=== PATIENT | female | born 1940 | race Two or more races ===

== ENCOUNTER 2017-07-16 10:57 | Emergency (ER) | payer MEDICARE, MEDICAID ==
--- NOTE | 2017-07-16 12:06 | ER Document Report ---
ED Medical Screen (RME) - General Chief Complaint: Shortness Of Breath Stated Complaint: BREATHING ISSUES Time Seen by Provider: 07/16/17 12:04 Notes: Patient states she is visiting here from [place]. She states she has a history of asthma. She states she has been short of breath and having a productive cough over the last several days. She has been using her nebulizer without significant relief. She has not been using her inhaler. She denies any pain. No fevers. TRAVEL OUTSIDE OF THE [place] IN LAST 30 DAYS: No - Related Data Allergies/Adverse Reactions: No Known Allergies Allergy (Verified 07/16/17 11:00) Past Medical History - Social History Chew tobacco use (# tins/day): No Frequency of alcohol use: Occasional Drug Abuse: None - Past Medical History Cardiac Medical History: Reports: Hx Hypercholesterolemia, Hx Hypertension Pulmonary Medical History: Reports: Hx Asthma, Hx COPD Endocrine Medical History: Reports: Hx Diabetes Mellitus Type 2 Renal/ Medical History: Denies: Hx Peritoneal Dialysis Malignancy Medical History: Reports: Hx Breast Cancer Musculoskeltal Medical History: Reports Hx Arthritis Past Surgical History: Reports: Hx Cardiac Catheterization, Hx Mastectomy - Immunizations Hx Diphtheria, Pertussis, Tetanus Vaccination: Yes Physical Exam - Vital signs Vitals: Temp Pulse Resp BP Pulse Ox 98 F 85 20 134/106 H 97 07/16/17 11:00 07/16/17 11:07/16/17 11:00 07/16/17 11:00 07/16/17 11:00 Course - Vital Signs Vital signs: Temp Pulse Resp BP Pulse Ox 98 F 85 20 134/106 H 97 07/16/17 11:07/16/17 11:00 07/16/17 11:00 07/16/17 11:00 07/16/17 11:00
[2017-07-16 12:29] LABS: ABSOLUTE BASOPHILS # (AUTO) 0.1 10^3/uL (0.0-0.2); ABSOLUTE EOSINOPHILS # (AUTO) 0.4 10^3/uL (0.0-0.6); ABSOLUTE LYMPHOCYTES (AUTO) 1.9 10^3/uL (0.5-4.7); ABSOLUTE MONOCYTES (AUTO) 0.7 10^3/uL (0.1-1.4); ABSOLUTE NEUT (AUTO) 4.3 10^3/uL (1.7-8.2); BASOPHILS % (AUTO) 0.9 % (0-2); EOSINOPHILS % (AUTO) 5.4 % (0-6); HEMATOCRIT 38.6 % (36.0-47.0); HEMOGLOBIN 12.9 g/dL (12.0-15.5); HGB HCT DIFFERENCE 0.1; LYMPHOCYTES % (AUTO) 25.6 % (13-45); MEAN CORPUSCULAR HEMOGLOBIN 28.2 pg (27.0-33.4); MEAN CORPUSCULAR HGB CONC 33.3 g/dL (32.0-36.0); MEAN CORPUSCULAR VOLUME 85 fl (80-97); MONOCYTES % (AUTO) 9.3 % (3-13); RED BLOOD COUNT 4.56 10^6/uL (3.72-5.28); RED CELL DISTRIBUTION WIDTH 15.6 % (11.5-14.0); SEGMENTED NEUTROPHILS % (AUTO) 58.8 % (42-78); WHITE BLOOD COUNT 7.4 10^3/uL (4.0-10.5)
--- NOTE | 2017-07-16 12:35 | RADIOLOGY REPORT (SQ) ---
EXAM DESCRIPTION: CHEST PA/LAT COMPLETED DATE/TIME: 07/16/2017 12:27 pm REASON FOR STUDY: sob/cough COMPARISON: 04/27/2015. NUMBER OF VIEWS: Two view. TECHNIQUE: Frontal and lateral radiographic views of the chest acquired. LIMITATIONS: None. FINDINGS: LUNGS AND PLEURA: Chronic interstitial scarring. No opacities, masses or pneumothorax. No pleural effusion. Attenuated blood vessels and flattened juanita-diaphragms. MEDIASTINUM AND HILAR STRUCTURES: No masses. No contour abnormalities. HEART AND VASCULAR STRUCTURES: Heart normal in size and contour. No evidence for failure. BONES: No acute findings. HARDWARE: None in the chest. OTHER: No other significant finding. IMPRESSION: COPD. NO ACUTE RADIOGRAPHIC FINDING IN THE CHEST. TECHNICAL DOCUMENTATION: JOB ID: [id number] [employer]- All Rights Reserved
[2017-07-16 12:44] LABS: ALANINE AMINOTRANSFERASE 41 U/L (9-52); ALBUMIN 4.3 g/dL (3.5-5.0); ALKALINE PHOSPHATASE 71 U/L (38-126); ANION GAP 11 (5-19); ASPARTATE AMINO TRANSFERASE 23 U/L (14-36); BILIRUBIN,DIRECT 0.3 mg/dL (0.0-0.4); BILIRUBIN,TOTAL 0.5 mg/dL (0.2-1.3); BLOOD UREA NITROGEN 19 mg/dL (7-20); CALCIUM 9.8 mg/dL (8.4-10.2); CARBON DIOXIDE 29 mmol/L (22-30); CHLORIDE 100 mmol/L (98-107); CREATININE RESULT 0.58 mg/dL (0.52-1.25); GLUCOSE 300 mg/dL (75-110); POTASSIUM 4.8 mmol/L (3.6-5.0); SODIUM 139.7 mmol/L (137-145); TOTAL PROTEIN 7.1 g/dL (6.3-8.2)
[2017-07-16] MEDS ORDERED: IPRATROPIUM/ALBUTEROL 0.5-2.5 MG/3 ML AMPUL NEB ONE (13:02)
[2017-07-16] MEDS ORDERED: GUAIFENESIN SYRP 200 MG/10 ML UDC PO ONE (13:03)
[2017-07-16] MEDS ORDERED: INSULIN REG, HUMAN 100 UNIT/ML 3 ML VIAL (PYX) SUBCUT ONE (14:10)
[2017-07-16] MEDS ORDERED: METHYLPREDNISOLONE INJ 125 MG/2 ML SDV IV ONE (14:10)
--- NOTE | 2017-07-16 14:17 | ER Document Report ---
ED Respiratory Problem - General Chief Complaint: Shortness Of Breath Stated Complaint: BREATHING ISSUES Time Seen by Provider: 07/16/17 12:04 Mode of Arrival: Ambulatory Information source: Patient Notes: Patient is a 76-year-old female who presents to the ER today for cough, shortness of breath, wheezing 1 week. Patient has COPD and has been using her albuterol inhaler but states that she is out of that as well as her albuterol for her nebulizer. She admits to productive cough, sweating and chills but does not know if she has had a fever or not. She denies any nausea or vomiting. She denies chest pain. TRAVEL OUTSIDE OF THE [place] IN LAST 30 DAYS: No - Related Data Allergies/Adverse Reactions: No Known Allergies Allergy (Verified 07/16/17 11:00) Past Medical History - General Information source: Patient - Social History Smoking Status: Former Smoker Chew tobacco use (# tins/day): No Frequency of alcohol use: Occasional Drug Abuse: None Family History: Reviewed & Not Pertinent Patient has suicidal ideation: No Patient has homicidal ideation: No - Past Medical History Cardiac Medical History: Reports: Hx Hypercholesterolemia, Hx Hypertension Pulmonary Medical History: Reports: Hx Asthma, Hx COPD Endocrine Medical History: Reports: Hx Diabetes Mellitus Type 2 Renal/ Medical History: Denies: Hx Peritoneal Dialysis Malignancy Medical History: Reports: Hx Breast Cancer Musculoskeltal Medical History: Reports Hx Arthritis Past Surgical History: Reports: Hx Cardiac Catheterization, Hx Mastectomy - Immunizations Hx Diphtheria, Pertussis, Tetanus Vaccination: Yes Hx Pneumococcal Vaccination: 01/15/13 Review of Systems - Review of Systems Constitutional: No symptoms reported EENT: No symptoms reported Cardiovascular: No symptoms reported Respiratory: See HPI Gastrointestinal: No symptoms reported Genitourinary: No symptoms reported Female Genitourinary: No symptoms reported Musculoskeletal: No symptoms reported Skin: No symptoms reported Hematologic/Lymphatic: No symptoms reported Neurological/Psychological: No symptoms reported Physical Exam - Vital signs Vitals: Temp Pulse Resp BP Pulse Ox 98 F 85 20 134/106 H 97 07/16/17 11:00 07/16/17 11:00 07/16/17 11:00 07/16/17 11:00 07/16/17 11:00 - Notes Notes: PHYSICAL EXAMINATION: GENERAL: Mildly ill-appearing, but in no acute distress. HEAD: Atraumatic, normocephalic. EYES: Pupils equal round and reactive to light, extraocular movements intact, sclera anicteric, conjunctiva are normal. ENT: ear canals without erythema or foreign body, TMs pearly lee with good bony landmarks, nares patent, oropharynx clear without exudates. Moist mucous membranes. Airway patent NECK: Normal range of motion, supple without lymphadenopathy LUNGS: Cough, rhonchi in bilateral lower lung pitt, no wheezes or rales HEART: Regular rate and rhythm without murmurs ABDOMEN: Soft, no tenderness. No guarding, no rebound EXTREMITIES: Normal range of motion, no pitting edema. No cyanosis. NEUROLOGICAL: Cranial nerves grossly intact. Normal sensory/motor exams. PSYCH: Normal mood, normal affect. SKIN: Warm, Dry, normal turgor, no rashes or lesions noted Course - Re-evaluation Re-evalutation: 07/16/17 14:17 Patient feels better after breathing treatment. Patient's glucose here was 300 , she was given insulin. I gave her a steroid shot here instead of sending her home on prednisone due to her diabetes. I will provide her an antibiotic, treating for bronchitis and COPD patient with more than 1 week of symptoms and productive cough, rhonchi on exam. - Vital Signs Vital signs: Temp Pulse Resp BP Pulse Ox 98 F 85 20 134/106 H 97 07/16/17 11:00 07/16/17 11:00 07/16/17 11:00 07/16/17 11:00 07/16/17 11:00 - Laboratory Result Diagrams: 07/16/17 12:10 07/16/17 12:10 Laboratory results interpreted by me: 07/16/17 07/16/17 12:10 12:10 RDW 15.6 H Glucose 300 H Discharge - Discharge Clinical Impression: COPD exacerbation Additional Instructions: Return immediately for any new or worsening symptoms. Follow up with primary care provider, call tomorrow to make followup appointment. Prescriptions: Albuterol Sulfate [Albuterol Sulfate 2.5mg/3 mL] 1 vial IH Q4 PRN #25 vial PRN Reason: Azithromycin [Zithromax 250 mg Tablet] 250 mg PO ASDIR PRN #6 tablet PRN Reason:
[2017-07-16] MEDS ORDERED: ALBUTEROL SULFATE HFA (90 MCG/PUFF) 8 GM MDI (1 MDI/ER DISP) IH PRN (14:19)
[2017-07-16 14:32] VITALS: BP 145/69
[2017-07-16] MEDS ORDERED: METHYLPREDNISOLONE INJ 125 MG/2 ML SDV IM ONE (14:59)
== END 2017-07-16 15:00 | disposition home or self-care (01) ==
LOC: ER 10:57
DX: J44.1 Chronic obstructive pulmonary disease with (acute) exacerbation (principal); R05 Cough; R06.02 Shortness of breath; R61 Generalized hyperhidrosis; R68.83 Chills (without fever); E11.9 Type 2 diabetes mellitus without complications; I10 Essential (primary) hypertension; Z87.891 Personal history of nicotine dependence; Z85.3 Personal history of malignant neoplasm of breast
CPT/HCPCS: 94640; 99285; 96374; 36415; 85025; 80053; 71020; A9270 ×2; J2930; J3490; J1815; J7620

== ENCOUNTER 2017-09-20 09:05 | Emergency (ER) | payer MEDICARE, MEDICAID ==
--- NOTE | 2017-09-20 09:36 | ER Document Report ---
ED Medical Screen (RME) - General Chief Complaint: Cough Stated Complaint: COUGH Mode of Arrival: Ambulatory Information source: Patient Notes: 76-year-old female with history of NV, asthma, COPD, and diabetes mellitus type II presents to the ED complaining of a severe productive cough with yellow sputum that started 2 weeks ago. Patient additionally complains of chills, malaise, mild chest discomfort which is exacerbated with deep breathing, and posttussive emesis. Patient explains that she was seen here last month (2016) with similar complaints. Patient was feeling better until 2 weeks ago when she developed the cough again. Patient has taken Mucinex and cough drops, with minimal relief. Patient is visiting from [place] and is not able to see her primary care physician. Patient has not taken her metformin for the past 3 days and is requesting a refill. TRAVEL OUTSIDE OF THE [place] IN LAST 30 DAYS: No - HPI Patient complains to provider of: cough Onset: Other - 2 weeks ago Associated Symptoms: Other - see notes above - Related Data Smoking: Quit greater than 1 year Allergies/Adverse Reactions: No Known Allergies Allergy (Verified 09/20/17 09:08) Home Medications: Current Home Medications Anastrozole [Arimidex 1 mg Tablet] 1 mg PO DAILY 09/20/17 [History] Esomeprazole Mag Trihydrate [Nexium] 40 mg PO DAILY 09/20/17 [History] Latanoprost [Xalatan 0.005% Oph Soln 2.5 ml] 1 drop OP QHS 09/20/17 [History] Loratadine [Claritin] 10 mg PO DAILY 09/20/17 [History] Nifedipine [Nifedipine ER] 120 mg PO DAILY 09/20/17 [History] Sitagliptin Phosphate [Januvia] 100 mg PO DAILY 09/20/17 [History] Valsartan 80 mg PO DAILY 09/20/17 [History] Past Medical History - General Information source: Patient - Social History Chew tobacco use (# tins/day): No Frequency of alcohol use: Occasional Drug Abuse: None - Past Medical History Cardiac Medical History: Reports: Hx Hypercholesterolemia, Hx Hypertension Pulmonary Medical History: Reports: Hx Asthma, Hx COPD Endocrine Medical History: Reports: Hx Diabetes Mellitus Type 2 Renal/ Medical History: Denies: Hx Peritoneal Dialysis Malignancy Medical History: Reports: Hx Breast Cancer Musculoskeltal Medical History: Reports Hx Arthritis Past Surgical History: Reports: Hx Cardiac Catheterization, Hx Mastectomy - Immunizations Hx Diphtheria, Pertussis, Tetanus Vaccination: Yes Review of Systems - Review of Systems Constitutional: See HPI, Chills, Malaise EENT: No symptoms reported Cardiovascular: See HPI, Chest pain Respiratory: See HPI, Cough, Hurts to breathe, Sputum - yellow Gastrointestinal: See HPI, Vomiting Genitourinary: No symptoms reported Female Genitourinary: No symptoms reported Musculoskeletal: No symptoms reported Skin: No symptoms reported Hematologic/Lymphatic: No symptoms reported Neurological/Psychological: No symptoms reported -: Yes All other systems reviewed and negative Physical Exam - Vital signs Vitals: Temp Pulse Resp BP Pulse Ox 98.1 F 80 20 137/50 H 97 09/20/17 09:12 09/20/17 09:12 09/20/17 09:12 09/20/17 09:12 09/20/17 09:12 - General General appearance: Alert In distress: None - Respiratory Respiratory status: No respiratory distress Breath sounds: Wheezing - bibasilar wheezing. No: Normal - Cardiovascular Rhythm: Regular Heart sounds: Normal auscultation - Psychological Associated symptoms: Normal affect, Normal mood Course - Vital Signs Vital signs: Temp Pulse Resp BP Pulse Ox 98.1 F 80 20 137/50 H 97 09/20/17 09:12 09/20/17 09:12 09/20/17 09:12 09/20/17 09:12 09/20/17 09:12 Scribe Documentation - Scribe Written by Scribe:: Katlyn Freitas, 09/20/2017 0958 acting as scribe for :: Alec
[2017-09-20 10:09] LABS: ABSOLUTE BASOPHILS # (AUTO) 0.1 10^3/uL (0.0-0.2); ABSOLUTE EOSINOPHILS # (AUTO) 0.4 10^3/uL (0.0-0.6); ABSOLUTE LYMPHOCYTES (AUTO) 1.9 10^3/uL (0.5-4.7); ABSOLUTE NEUT (AUTO) 7.8 10^3/uL (1.7-8.2); BASOPHILS % (AUTO) 0.6 % (0-2); EOSINOPHILS % (AUTO) 3.8 % (0-6); LYMPHOCYTES % (AUTO) 16.7 % (13-45); MEAN CORPUSCULAR HEMOGLOBIN 27.9 pg (27.0-33.4); MEAN CORPUSCULAR HGB CONC 33.4 g/dL (32.0-36.0); MEAN CORPUSCULAR VOLUME 84 fl (80-97); MONOCYTES % (AUTO) 9.2 % (3-13); RED BLOOD COUNT 4.31 10^6/uL (3.72-5.28); RED CELL DISTRIBUTION WIDTH 14.6 % (11.5-14.0); SEGMENTED NEUTROPHILS % (AUTO) 69.7 % (42-78); WHITE BLOOD COUNT 11.2 10^3/uL (4.0-10.5)
--- NOTE | 2017-09-20 10:14 | RADIOLOGY REPORT (SQ) ---
EXAM DESCRIPTION: CHEST PA/LAT COMPLETED DATE/TIME: 09/20/2017 10:03 am REASON FOR STUDY: Cough and congestion COMPARISON: 07/16/2017. NUMBER OF VIEWS: Two view. TECHNIQUE: Frontal and lateral radiographic views of the chest acquired. LIMITATIONS: None. FINDINGS: LUNGS AND PLEURA: Hyperinflation. Infiltrate in the superior segment left lower lobe. Ri ght lung clear. No pleural effusion. MEDIASTINUM AND HILAR STRUCTURES: No masses. No contour abnormalities. HEART AND VASCULAR STRUCTURES: Heart normal in size and contour. No evidence for failure. BONES: No acute findings. HARDWARE: None in the chest. OTHER: No other significant finding. IMPRESSION: COPD. LEFT LUNG INFILTRATE CONSISTENT WITH PNEUMONIA. TECHNICAL DOCUMENTATION: JOB ID: [id number] [employer]- All Rights Reserved
[2017-09-20 10:30] LABS: ALANINE AMINOTRANSFERASE 45 U/L (9-52); ALBUMIN 4.1 g/dL (3.5-5.0); ALKALINE PHOSPHATASE 82 U/L (38-126); ANION GAP 12 (5-19); ASPARTATE AMINO TRANSFERASE 21 U/L (14-36); BILIRUBIN,DIRECT 0.4 mg/dL (0.0-0.4); BILIRUBIN,TOTAL 0.5 mg/dL (0.2-1.3); BLOOD UREA NITROGEN 16 mg/dL (7-20); CALCIUM 9.3 mg/dL (8.4-10.2); CARBON DIOXIDE 28 mmol/L (22-30); CHLORIDE 100 mmol/L (98-107); GLUCOSE 319 mg/dL (75-110); POTASSIUM 4.7 mmol/L (3.6-5.0); SODIUM 140.4 mmol/L (137-145); TOTAL PROTEIN 6.9 g/dL (6.3-8.2)
[2017-09-20] MEDS ORDERED: CEFTRIAXONE 1 GM/D5W RTU 1 GM/50 ML RTUPB IV ONE (12:02)
[2017-09-20] MEDS ORDERED: CEFTRIAXONE INJ 500 MG VIAL IM ONE (12:29)
[2017-09-20] MEDS ORDERED: DEXAMETHASONE SOD PHOS INJ 10 MG/1 ML VIAL IM ONE (12:31)
[2017-09-20] MEDS ORDERED: IPRATROPIUM/ALBUTEROL 0.5-2.5 MG/3 ML AMPUL NEB ONE (12:31)
--- NOTE | 2017-09-20 13:14 | EKG REPORT ---
SEVERITY:- NORMAL ECG - SINUS RHYTHM : Confirmed by: Nick Chavez MD 20-Sep-2017 13:13:31
--- NOTE | 2017-09-20 14:10 | ER Document Report ---
ED General - General Chief Complaint: Cough Stated Complaint: COUGH Time Seen by Provider: 09/20/17 09:28 Mode of Arrival: Ambulatory Information source: Patient Notes: Patient is a 76-year-old female comes emergency room complaining of a two-week onset of cough. Patient is living here with her daughter from [place] for the past 2 months. Patient states she was seen here a few months back for the same kind of complaint and she got better. She comes back today with complaint of cough with a light green productive sputum. She denies having any fever although she has been chilled. She also informed me that she is an oral dependent diabetic and she has been out of her metformin now for the past month and a half. She states she has not been checking her sugars because she is out of her test strips. She has had some congestion runny nose she has been using her inhalers at home as well as her nebulizer machine with some effect. She states spelled that her cough is getting worse and she is not feeling well. TRAVEL OUTSIDE OF THE [place] IN LAST 30 DAYS: No - HPI Patient complains to provider of: Cough/congestion Onset: Other - Two-week onset worse past 2 days Onset/Duration: Gradual Quality of pain: Achy Severity: Moderate Pain Level: 2 Associated symptoms: Chills, Productive cough, Nausea, Rhinnorhea, Sinus pain/ drainage Exacerbated by: Walking, Coughing, Deep breathing Relieved by: Denies Similar symptoms previously: Yes Recently seen / treated by doctor: No - Related Data Allergies/Adverse Reactions: No Known Allergies Allergy (Verified 09/20/17 09:08) Home Medications: Current Home Medications Anastrozole [Arimidex 1 mg Tablet] 1 mg PO DAILY 09/20/17 [History] Esomeprazole Mag Trihydrate [Nexium] 40 mg PO DAILY 09/20/17 [History] Latanoprost [Xalatan 0.005% Oph Soln 2.5 ml] 1 drop OP QHS 09/20/17 [History] Loratadine [Claritin] 10 mg PO DAILY 09/20/17 [History] Nifedipine [Nifedipine ER] 120 mg PO DAILY 09/20/17 [History] Sitagliptin Phosphate [Januvia] 100 mg PO DAILY 09/20/17 [History] Valsartan 80 mg PO DAILY 09/20/17 [History] Past Medical History - General Information source: Patient - Social History Smoking Status: Unknown if Ever Smoked Chew tobacco use (# tins/day): No Frequency of alcohol use: Occasional Drug Abuse: None Family History: Reviewed & Not Pertinent Patient has suicidal ideation: No Patient has homicidal ideation: No - Past Medical History Cardiac Medical History: Reports: Hx Hypercholesterolemia, Hx Hypertension Pulmonary Medical History: Reports: Hx Asthma, Hx COPD Endocrine Medical History: Reports: Hx Diabetes Mellitus Type 2 Renal/ Medical History: Denies: Hx Peritoneal Dialysis Malignancy Medical History: Reports: Hx Breast Cancer Musculoskeltal Medical History: Reports Hx Arthritis Past Surgical History: Reports: Hx Cardiac Catheterization, Hx Mastectomy - Immunizations Hx Diphtheria, Pertussis, Tetanus Vaccination: Yes Hx Pneumococcal Vaccination: 01/15/13 Review of Systems - Review of Systems Constitutional: Chills, Fever, Weakness EENT: Nose congestion Cardiovascular: No symptoms reported Respiratory: Cough, Sputum, Wheezing Gastrointestinal: No symptoms reported Genitourinary: No symptoms reported Female Genitourinary: No symptoms reported Musculoskeletal: No symptoms reported Skin: No symptoms reported Hematologic/Lymphatic: No symptoms reported Neurological/Psychological: No symptoms reported -: Yes All other systems reviewed and negative Physical Exam - Vital signs Vitals: Temp Pulse Resp BP Pulse Ox 98.1 F 80 20 137/50 H 97 09/20/17 09:12 09/20/17 09:12 09/20/17 09:12 09/20/17 09:12 09/20/17 09:12 Interpretation: Normal - Notes Notes: As stated patient is a 76-year-old female who is here because she has a cough that developed over the past 2 weeks. It is productive of slightly yellow. Patient does not look very ill. She is communicative smiling and occasionally coughs. Patient is afebrile and denies really major shortness of breath. - HEENT Head: Normocephalic, Atraumatic Eyes: Normal Tympanic membrane: Bulging Nasal: Other - Bilateral nasal congestion Mucous membranes: Moist Pharynx: Other - Examination had an upper airway showed nasal mucosa to be mildly erythematous and edematous with some mild thin yellowish rhinorrhea noted. Bilateral nasal congestion is also noted. Bilateral frontal sinus tenderness to percussion. Bilateral maxillary is unclear. Examination of the ear show bilateral TMs to be bulging with no fluid levels noted. External canals are's has cerumen but TMs are visualized landmarks are normal. Examination of posterior pharynx shows drainage in the back with yellowish tint to it. Rest of the oropharynx shows moderate erythema with no exudates. Uvula is midline no exudate but erythematous and airway is patent. Neck: Normal - Respiratory Respiratory status: No respiratory distress Chest status: Nontender Breath sounds: Decreased air movement, Wheezing, Other - Auscultation patient's lung pitt show she has bilateral breath sounds breath sounds are moderately decreased throughout with an end expiratory wheeze on the left side with possible upper airway rhonchi noted on exhalation. Chest palpation: Normal - Cardiovascular Rhythm: Regular Heart sounds: Normal auscultation Murmur: No - Extremities General upper extremity: Normal inspection General lower extremity: Normal inspection Shoulder: Normal - Neurological Neuro grossly intact: Yes Cognition: Normal Orientation: AAOx4, Disoriented to events Kaushik Coma Scale Eye Opening: Spontaneous Kaushik Coma Scale Verbal: Oriented [place] Coma Scale Motor: Obeys Commands [place] Coma Scale Total: 15 Speech: Normal Course - Vital Signs Vital signs: Temp Pulse Resp BP Pulse Ox 98.1 F 80 20 137/50 H 97 09/20/17 09:12 09/20/17 09:12 09/20/17 09:12 09/20/17 09:12 09/20/17 09:12 - Laboratory Result Diagrams: 09/20/17 09:50 09/20/17 09:50 Laboratory results interpreted by me: 09/20/17 09/20/17 09:50 09:50 WBC 11.2 H RDW 14.6 H Glucose 319 H - Diagnostic Test Radiology reviewed: Reports reviewed - Radiology plain x-ray of the chest shows a infiltrate consistent with pneumonia on the left lower lung area. - Transfer of Care Notes: 09/20/17 14:30 I had a long discussion with patient with nurse present. As stated she is 76 years old patient does not want to be admitted. I informed her that she does have a left lobe infiltrate suspicious for pneumonia and goes along with her presentation of cough. Patient states that she is not short of breath she is just coughing up a little light yellow phlegm. She has a history of COPD and is on nebulized treatments and MDIs at home at this time with daughter present patient wants to try outpatient therapy first. Patient looks relatively good she is awake alert oriented she is communicative and smiling on examination. At this time I believe we can try patient on an outpatient basis for the pneumonia putting her on Levaquin 750 daily for 7 days and steroid taper with something for congestion. Patient has reiterated back to me that if she should get more short of breath spike a fever or have any concerns she is not getting better she will return to ER and be admitted. Her daughter is in agreement with this. Discharge - Discharge Clinical Impression: Pneumonia Qualifiers: Pneumonia type: due to unspecified organism Laterality: left Lung location: unspecified part of lung Qualified Code(s): J18.9 - Pneumonia, unspecified organism Diabetes Qualifiers: Diabetes mellitus type: type 2 Diabetes mellitus complication status: without complication Diabetes mellitus usp insulin use: without usp use Qualified Code(s): E11.9 - Type 2 diabetes mellitus without complications Condition: Good Disposition: HOME, SELF-CARE Instructions: Pneumonia ([facility]) Additional Instructions: Home and rest. Medication as prescribed. [facility] on a regular routine of nebulized treatments once every 6 hours while awake and do not overdo your MDIs. Were placing you on a steroid taper take it as directed as well. As we have discussed and you promised if he should get any worse increased cough increased temp or just not feeling that you are getting better return to ER for admission. As we have also discussed your blood sugar is not where it should be. You have also not been taking her metformin since she ran out for several days. Your blood sugars will be slightly more pronounced out of norm because of the infection you have brewing in your body. Highly important that you monitor your blood sugars therefore I am writing you prescription for your strips. And I am writing to put you back on your metformin. Monitor your sugars if above 3 104/24-48 hours return to ER for a recheck. Prescriptions: Chlorpheniramine Maleate [Chlor-Trimeton 4 Mg Tablet] 4 mg PO TID #20 tablet Fluconazole [Diflucan] 150 mg PO ONCE PRN #1 tablet PRN Reason: Levofloxacin [Levaquin 750 mg Tablet] 750 mg PO DAILY #10 tablet Metformin HCl [Glucophage 500 mg Tablet] 500 mg PO BID #60 tablet Prednisone [Sterapred Ds] 10 mg PO ASDIR #21 tab.ds.pk
[2017-09-20 14:31] VITALS: BP 141/62
== END 2017-09-20 15:00 | disposition home or self-care (01) ==
LOC: ER 09:05
DX: J18.9 Pneumonia, unspecified organism (principal); E11.9 Type 2 diabetes mellitus without complications; T38.3X6A Underdosing of insulin and oral hypoglycemic [antidiabetic] drugs, initial encounter; Z91.128 Patient's intentional underdosing of medication regimen for other reason; Z91.14 Patient's other noncompliance with medication regimen; R05 Cough; R11.0 Nausea; J34.89 Other specified disorders of nose and nasal sinuses; I10 Essential (primary) hypertension; J44.9 Chronic obstructive pulmonary disease, unspecified; R53.1 Weakness; R50.9 Fever, unspecified; R09.81 Nasal congestion; Z85.3 Personal history of malignant neoplasm of breast; Z79.899 Other long term (current) drug therapy
CPT/HCPCS: 93005; 94640; 99284; 96372; 36415; 85025; 80053; 84484; 71020; 93010; J0696; J1100; A9270; J7620

== ENCOUNTER 2019-04-21 09:18 | Observation (INO) | payer MEDICAID, MEDICARE ==
[2019-04-21] MEDS ORDERED: ASPIRIN 81 MG TABLET, CHEWABLE PO ONE (09:47)
--- NOTE | 2019-04-21 09:53 | ER Document Report ---
ED Cardiac - General Chief Complaint: Chest Pain Stated Complaint: CHEST PAIN Time Seen by Provider: 04/21/19 09:42 TRAVEL OUTSIDE OF THE [place] IN LAST 30 DAYS: No - HPI Notes: Patient is a 78-year-old female that presents to the emergency department for chief complaint of chest pain. Patient reports left-sided chest pain that began last night and has been constant since onset. She describes it as a heaviness that wraps around her left side. She states it is making it hard to breathe because it feels heavy. She denies any nausea/vomiting, diaphoresis or palpitations. She has had coronary stenting 10 to 12 years ago per her daughter. Patient is on aspirin and thinks she probably took 1 baby aspirin this morning. She is unsure when her last stress test was. Past Medical History: Hypertension, hyperlipidemia, CAD, diabetes Past Surgical History: Coronary stent Social History: Denies drugs alcohol and tobacco use Family History: Reviewed and noncontributory for presenting illness Allergies: Reviewed, see documented allergy list. REVIEW OF SYSTEMS: CONSTITUTIONAL : No fever No chills No diaphoresis No recent illness EENT: No vision changes No congestion No sore throat CARDIOVASCULAR: chest pain No palpitations RESPIRATORY: shortness of breath No cough difficulty breathing GASTROINTESTINAL: No abdominal pain No nausea No vomiting No diarrhea GENITOURINARY: No dysuria No hematuria No difficulty urinating MUSCULOSKELETAL: No back pain No leg pain No arm pain SKIN: No rashes No lesions LYMPHATIC: No swollen, enlarged glands. NEUROLOGICAL: No lightheadedness No headache No weakness No paresthesias PSYCHIATRIC: No anxiety No depression PHYSICAL EXAMINATION: Vital signs reviewed, nursing noted reviewed. GENERAL: Well-appearing, well-nourished and in no acute distress. HEAD: Atraumatic, normocephalic. EYES: Eyes appear normal, extraocular movements intact, sclera anicteric, conjunctiva are normal. ENT: nares patent, oropharynx clear without exudates. Moist mucous membranes. NECK: Normal range of motion, supple without lymphadenopathy LUNGS: Breath sounds clear to auscultation bilaterally and equal. No wheezes rales or rhonchi. HEART: Regular rate and rhythm without murmurs, +2/4 bilateral radial and DP pulses ABDOMEN: Soft, nontender, normoactive bowel sounds. No rebound, guarding, or rigidity. No masses appreciated. EXTREMITIES: Nontender, good range of motion, no pitting or edema. Negative Trace ans sign bilaterally NEUROLOGICAL: No focal neurological deficits. Moves all extremities spontaneou sly Motor and sensory grossly intact on exam. PSYCH: Normal mood, normal affect. SKIN: Warm, Dry, normal turgor, no rashes or lesions noted on exposed skin - Related Data Allergies/Adverse Reactions: No Known Allergies Allergy (Verified 04/21/19 09:19) Past Medical History - Social History Smoking Status: Never Smoker Family History: Reviewed & Not Pertinent - Past Medical History Cardiac Medical History: Reports: Hx Hypercholesterolemia, Hx Hypertension Pulmonary Medical History: Reports: Hx Asthma, Hx COPD Endocrine Medical History: Reports: Hx Diabetes Mellitus Type 2 Renal/ Medical History: Denies: Hx Peritoneal Dialysis Malignancy Medical History: Reports: Hx Breast Cancer Musculoskeletal Medical History: Reports Hx Arthritis Past Surgical History: Reports: Hx Cardiac Catheterization, Hx Mastectomy - Immunizations Hx Diphtheria, Pertussis, Tetanus Vaccination: Yes Hx Pneumococcal Vaccination: 01/15/13 Physical Exam - Vital signs Vitals: Temp Pulse Resp BP Pulse Ox 97.5 F 80 16 153/77 H 98 04/21/19 09:30 04/21/19 09:30 04/21/19 09:30 04/21/19 09:30 04/21/19 09:30 Course - Re-evaluation Re-evalutation: 04/21/19 09:52 Vitals reviewed. Nursing notes reviewed. Patient is well-appearing but reports discomfort in her chest. She will be given nitro and aspirin for symptomatic management. Her EKG shows sinus rhythm with no STEMI. Patient placed on telemetry monitoring. Her daughter is at bedside assisting with translation however patient does speak and understand Algerian well. 04/21/19 12:35 On reevaluation patient states her pain has almost completely resolved. CTA shows no pulmonary embolism. Laboratory 04/21/19 04/21/19 04/21/19 09:43 09:43 09:43 WBC 9.2 RBC 5.11 Hgb 14.7 Hct 44.2 MCV 86 MCH 28.8 MCHC 33.3 RDW 14.7 H Plt Count 260 Seg Neutrophils % 60.3 Lymphocytes % 23.9 Monocytes % 9.4 Eosinophils % 5.6 Basophils % 0.8 Absolute Neutrophils 5.5 Absolute Lymphocytes 2.2 Absolute Monocytes 0.9 Absolute Eosinophils 0.5 Absolute Basophils 0.1 Sodium 139.8 Potassium 5.1 H Chloride 100 Carbon Dioxide 28 Anion Gap 12 BUN 24 H Creatinine 0.55 Est GFR ( Amer) > 60 Est GFR (Non-Af Amer) > 60 Glucose 240 H Calcium 10.4 H Total Bilirubin 0.5 Direct Bilirubin 0.3 Neonat Total Bilirubin Not Reportable Neonat Direct Bilirubin Not Reportable Neonat Indirect Bili Not Reportable AST 28 ALT 26 Alkaline Phosphatase 111 Troponin I < 0.012 Total Protein 8.4 H Albumin 5.0 Chest X-Ray 04/21/19 09:47 IMPRESSION: NO ACUTE RADIOGRAPHIC FINDING IN THE CHEST. Chest/Abdomen CTA 04/21/19 10:38 IMPRESSION: 1. Negative examination for pulmonary embolism. 2. Pulmonary hyperinflation without acute abnormality of the lungs. 3. Coronary artery disease. Her troponin is negative. The remainder of her work-up is unremarkable. X-ray shows no acute cardiopulmonary process. She does have significant risk factors and known CAD. She will be admitted to the hospital for telemetry monitoring and further cardiac evaluation. Care discussed with Dr. Juan who accepts admission. Patient in agreement with plan of care. - Vital Signs Vital signs: Temp Pulse Resp BP Pulse Ox 97.0 F 70 17 159/97 H 98 04/21/19 09:49 04/21/19 09:49 04/21/19 11:10 04/21/19 11:10 04/21/19 11:10 - Laboratory Result Diagrams: 04/21/19 09:43 04/21/19 09:43 Laboratory results interpreted by me: 04/21/19 04/21/19 09:43 09:43 RDW 14.7 H Potassium 5.1 H BUN 24 H Glucose 240 H Calcium 10.4 H Total Protein 8.4 H - EKG Interpretation by Me Additional EKG results interpreted by me: 04/21/19 09:53 Interpreted by myself [id number]: Normal sinus rhythm, rate 80, normal axis, no ectopy, no STEMI Discharge - Discharge Clinical Impression: Chest pain Qualifiers: Chest pain type: unspecified Qualified Code(s): R07.9 - Chest pain, unspecified Condition: Stable Disposition: ADMITTED OBSERVATION Admitting Provider: Yessica (Hospitalist) Unit Admitted: Telemetry
[2019-04-21] MEDS: NITROGLYCERIN 0.4 MG/TAB 25 TAB/BOTTLE SL PRN ×4 (10:03→11:07)
[2019-04-21 10:13] LABS: ABSOLUTE BASOPHILS # (AUTO) 0.1 10^3/uL (0.0-0.2); ABSOLUTE EOSINOPHILS # (AUTO) 0.5 10^3/uL (0.0-0.6); ABSOLUTE LYMPHOCYTES (AUTO) 2.2 10^3/uL (0.5-4.7); ABSOLUTE MONOCYTES (AUTO) 0.9 10^3/uL (0.1-1.4); ABSOLUTE NEUT (AUTO) 5.5 10^3/uL (1.7-8.2); BASOPHILS % (AUTO) 0.8 % (0-2); EOSINOPHILS % (AUTO) 5.6 % (0-6); HEMATOCRIT 44.2 % (36.0-47.0); HEMOGLOBIN 14.7 g/dL (12.0-15.5); LYMPHOCYTES % (AUTO) 23.9 % (13-45); MEAN CORPUSCULAR HEMOGLOBIN 28.8 pg (27.0-33.4); MEAN CORPUSCULAR HGB CONC 33.3 g/dL (32.0-36.0); MEAN CORPUSCULAR VOLUME 86 fl (80-97); MONOCYTES % (AUTO) 9.4 % (3-13); PLATELET COUNT 260 10^3/uL (150-450); RED BLOOD COUNT 5.11 10^6/uL (3.72-5.28); RED CELL DISTRIBUTION WIDTH 14.7 % (11.5-14.0); SEGMENTED NEUTROPHILS % (AUTO) 60.3 % (42-78); TOTAL CELLS COUNTED % (AUTO) 100 %; WHITE BLOOD COUNT 9.2 10^3/uL (4.0-10.5)
--- NOTE | 2019-04-21 10:25 | RADIOLOGY REPORT (SQ) ---
EXAM DESCRIPTION: CHEST SINGLE VIEW COMPLETED DATE/TIME: 04/21/2019 10:13 am REASON FOR STUDY: chest pain COMPARISON: 11216, 07/16/2017 CHEST FILMS EXAM PARAMETERS: NUMBER OF VIEWS: One view. TECHNIQUE: Single frontal radiographic view of the chest acquired. RADIATION DOSE: NA LIMITATIONS: None. FINDINGS: LUNGS AND PLEURA: Lungs are hyperinflated from obstructive disease. No focal infiltrates. No pleural effusion or pneumothorax. MEDIASTINUM AND HILAR STRUCTURES: No masses. Contour normal. HEART AND VASCULAR STRUCTURES: Heart normal in size. Normal vasculature. BONES: No acute findings. HARDWARE: None in the chest. OTHER: No other significant finding. IMPRESSION: NO ACUTE RADIOGRAPHIC FINDING IN THE CHEST. TECHNICAL DOCUMENTATION: JOB ID: [id number]- All Rights Reserved Reading location - IP/workstation name: [email or web address]
[2019-04-21 10:28] LABS: ALANINE AMINOTRANSFERASE 26 U/L (9-52); ALKALINE PHOSPHATASE 111 U/L (38-126); ANION GAP 12 (5-19); ASPARTATE AMINO TRANSFERASE 28 U/L (14-36); BILIRUBIN,DIRECT 0.3 mg/dL (0.0-0.4); BILIRUBIN,TOTAL 0.5 mg/dL (0.2-1.3); BLOOD UREA NITROGEN 24 mg/dL (7-20); CALCIUM 10.4 mg/dL (8.4-10.2); CARBON DIOXIDE 28 mmol/L (22-30); CHLORIDE 100 mmol/L (98-107); GLUCOSE 240 mg/dL (75-110); POTASSIUM 5.1 mmol/L (3.6-5.0); SODIUM 139.8 mmol/L (137-145); TOTAL PROTEIN 8.4 g/dL (6.3-8.2)
[2019-04-21] MEDS ORDERED: MORPHINE SULFATE 10 MG/ML INJ IV ONE (10:38)
[2019-04-21] MEDS ORDERED: ALBUTEROL SULFATE 0.083% NEB 2.5 MG/3 ML AMPUL NEB ONE (11:50)
[2019-04-21] MEDS ORDERED: SODIUM POLYSTYRENE SULFONATE 15 GM/60 ML PO ONE (11:50)
--- NOTE | 2019-04-21 11:54 | RADIOLOGY REPORT (SQ) ---
EXAM DESCRIPTION: CTA CHEST COMPLETED DATE/TIME: 04/21/2019 11:33 am REASON FOR STUDY: left chest pain COMPARISON: Same day chest radiograph TECHNIQUE: CT scan of the chest performed using helical scanning technique with dynamic intravenous contrast injection. Images reviewed with lung, soft tissue and bone windows. Reconstructed coronal and sagittal MPR images reviewed. Additional 3 dimensional post-processing performed to develop Maximal Intensity Projection images (CO P). All images stored on PACS. All CT scanners at this facility use dose modulation, iterative reconstruction, and/or weight based d osing when appropriate to reduce radiation dose to as low as reasonably achievable (ALARA). [facility]: Dose Right [facility]: CareDose [facility]: Dose Right [facility]: Teradose 4D [facility]: INcubes CONTRAST TYPE AND DOSE: contrast/concentration: Isovue 350.00 mg/ml; Total Contrast Delivered: 63.0 ml; Total Saline Delivered: 90.0 ml Contrast bolus optimized for the pulmonary arteries. Not diagnostic for the aorta. RENAL FUNCTION: GFR > 60. RADIATION DOSE: CT Rad equipment meets quality standard of care and radiation dose reduction techniq ues were employed. CTDIvol: 14.3 - 16.5 mGy. DLP: 531 mGy-cm. . LIMITATIONS: None. FINDINGS: LUNGS AND PLEURA: Pulmonary hyperinflation. No masses, infiltrates, or pneumothorax. No pleural effusions or pleural calcifications. AORTA AND GREAT VESSELS: No aneurysm. Contrast bolus not optimized for the aorta. HEART: No pericardial effusion. Three-vessel coronary artery calcifications PULMONARY ARTERIES: No emboli visualized in the main pulmonary arteries or the segmental branches. HILAR AND MEDIASTINAL STRUCTURES: No identified masses or abnormal nodes. HARDWARE: None in the chest. UPPER ABDOMEN: No significant findings. Limited exam. THYROID AND OTHER SOFT TISSUES: No masses. No adenopathy. BONES: No acute or significant finding. 3D MIPS: Confirm above findings. OTHER: No other significant finding. IMPRESSION: 1. Negative examination for pulmonary embolism. 2. Pulmonary hyperinflation without acute abnormality of the lungs. 3. Coronary artery disease. COMMENT: Quality ID # [id number]: Final reports with documentation of one or more dose reduction techniques (e.g., Automated exposure control, adjustment of the mA and/or kV according to patient size, use of iterative reconstruction technique) TECHNICAL DOCUMENTATION: JOB ID: [id number]- All Rights Reserved Reading location - IP/workstation name: [email or web address]
--- NOTE | 2019-04-21 14:56 | EKG REPORT ---
SEVERITY:- NORMAL ECG - SINUS RHYTHM : Confirmed by: Daniel Cueto 21-Apr-2019 14:55:58
[2019-04-21] MEDS ORDERED: ACETAMINOPHEN 325 MG TABLET PO PRN (15:07)
[2019-04-21] MEDS ORDERED: ACETAMINOPHEN 650 MG SUPP.RECT PR PRN (15:07)
[2019-04-21] MEDS ORDERED: ONDANSETRON HCL INJ/PF 4 MG/2 ML SDV IV PRN (15:07)
[2019-04-21] MEDS ORDERED: PROMETHAZINE HCL INJ 25 MG/1 ML VIAL IV PRN (15:07)
[2019-04-21] MEDS ORDERED: DEXTROSE 50%-WATER 25 GM/50 ML DISP.SYRIN IV PRN ×2 (15:14)
[2019-04-21] MEDS ORDERED: DEXTROSE 40% GEL 15 GM TUBE PO PRN ×2 (15:14)
[2019-04-21] MEDS ORDERED: GLUCAGON,HUMAN RECOMB 1 MG INJ IM PRN (15:14)
[2019-04-21] MEDS: INSULIN LISPRO 100 UNIT/ML 3 ML VIAL SUBCUT SCH ×2 (16:59→21:20)
--- NOTE | 2019-04-21 17:44 | PDOC H&P ---
History of Present Illness Admission Date/PCP: 04/21/19 12:39 History of Present Illness: NAKUL VAZQUEZ is a 78 year old female past medical history of CAD status post 1 stent x10 years, diabetes, hypertension, dyslipidemia, TIA, (cancer status post mastectomy and chemotherapy, asthma tenting to ED complaining of chest pain. Chest pain started yesterday evening, she woke up with left-sided chest pain, stabbing in quality, worse with movement and coughing, constant, radiating to h er back associated with shortness of breath. Denies any fever, chills, nausea, vomiting, diarrhea, constipation or any urinary symptoms. ED CTA was negative for any PE or pneumonia, troponins on admission WNL, EKG no acute changes. Due to patient's history of CAD hospital was consulted for admission. On physical examination patient has tenderness to the left chest especially over postsurgical area of the left mastectomy. Past Medical History Cardiac Medical History: Reports: Hyperlipidema, Hypertension Pulmonary Medical History: Reports: Asthma, Chronic Obstructive Pulmonary Disease (COPD) Endocrine Medical History: Reports: Diabetes Mellitus Type 2 Malignancy Medical History: Reports: Breast Cancer Musculoskeltal Medical History: Reports: Arthritis Past Surgical History Past Surgical History: Reports: Cardiac Catheterization, Mastectomy Social History Smoking Status: Never Smoker - Advance Directive Resuscitation Status: Full Code Family History Family History: Reviewed & Not Pertinent Parental Family History Reviewed: Yes Children Family History Reviewed: Yes Sibling(s) Family History Reviewed.: Yes Medication/Allergy Home Medications: Albuterol Sulfate [Proair Hfa Inhalation Aerosol 8.5 gm Mdi] 1 puff IH Q6HP PRN 04/21/19 Albuterol Sulfate [Ventolin 0.083% Neb 2.5 mg/3 ml Ampul] 1 vial NEB RTQ6HP PRN 04/21/19 Anastrozole [Arimidex 1 mg Tablet] 1 mg PO DAILY 04/21/19 Aspirin [Ecotrin] 81 mg PO DAILY 04/21/19 Atorvastatin Calcium [Lipitor 80 mg Tablet] 80 mg PO QHS 04/21/19 Budesonide/Formoterol Fumarate [Symbicort Hfa 160-4.5 Mcg Inhaler 6 gm] 1 puff IH Q12 04/21/19 Chlorpheniramine Maleate [Chlor-Trimeton 4 mg Tablet] 1 tab PO TIDP PRN 04/21/19 Esomeprazole Mag Trihydrate [Nexium] 40 mg PO Q6AM 04/21/19 Ezetimibe [Zetia 10 mg Tablet] 10 mg PO DAILY 04/21/19 Glipizide [Glocotrol 10 Mg Tablet] 10 mg PO BID 04/21/19 Latanoprost [Xalatan 0.005% Oph Soln 2.5 ml] 1 drop OS QHS 04/21/19 Metformin HCl [Glucophage XR 500 mg Tablet] 500 mg PO BIDBS 04/21/19 Montelukast Sodium [Singulair 10 mg Tablet] 10 mg PO QHS 04/21/19 Nifedipine [Nifedipine ER] 60 mg PO Q12 04/21/19 Sitagliptin Phosphate [Januvia] 100 mg PO DAILY 04/21/19 Valsartan [Diovan 160 mg Tablet] 160 mg PO DAILY 04/21/19 Allergies/Adverse Reactions: No Known Allergies Allergy (Verified 04/21/19 09:19) Review of Systems Review of Systems: as per hpi Physical Exam Vital Signs: Temp Pulse Resp BP Pulse Ox 98.8 F 79 16 160/70 H 99 04/21/19 17:02 04/21/19 17:02 04/21/19 17:02 04/21/19 17:02 04/21/19 17:02 Intake & Output 04/20/19 04/21/19 04/22/19 06:59 06:59 06:59 Intake Total 360 Balance 360 Weight 48.9 kg General appearance: PRESENT: no acute distress, well-developed, well-nourished Neck exam: ABSENT: carotid bruit, JVD, lymphadenopathy, thyromegaly Respiratory exam: PRESENT: clear to auscultation hayden. ABSENT: rales, rhonchi, wheezes Cardiovascular exam: PRESENT: RRR, other - Tenderness over para sternal and left chest.. ABSENT: diastolic murmur, rubs, systolic murmur Neurological exam: PRESENT: alert, awake, oriented to person, oriented to place, oriented to time, oriented to situation, CN II-XII grossly intact. ABSENT: motor sensory deficit Results Laboratory Results: 04/21/19 09:43 04/21/19 09:43 04/21/19 04/21/19 09:43 09:43 WBC 9.2 RBC 5.11 Hgb 14.7 Hct 44.2 MCV 86 MCH 28.8 MCHC 33.3 RDW 14.7 H Plt Count 260 Seg Neutrophils % 60.3 Lymphocytes % 23.9 Monocytes % 9.4 Eosinophils % 5.6 Basophils % 0.8 Absolute Neutrophils 5.5 Absolute Lymphocytes 2.2 Absolute Monocytes 0.9 Absolute Eosinophils 0.5 Absolute Basophils 0.1 Sodium 139.8 Potassium 5.1 H Chloride 100 Carbon Dioxide 28 Anion Gap 12 BUN 24 H Creatinine 0.55 Est GFR ( Amer) > 60 Est GFR (Non-Af Amer) > 60 Glucose 240 H Calcium 10.4 H Total Bilirubin 0.5 AST 28 ALT 26 Alkaline Phosphatase 111 Total Protein 8.4 H Albumin 5.0 04/21/19 04/21/19 09:43 15:00 Troponin I < 0.012 < 0.012 Impressions: Chest X-Ray 04/21/19 09:47 IMPRESSION: NO ACUTE RADIOGRAPHIC FINDING IN THE CHEST. Chest/Abdomen CTA 04/21/19 10:38 IMPRESSION: 1. Negative examination for pulmonary embolism. 2. Pulmonary hyperinflation without acute abnormality of the lungs. 3. Coronary artery disease. Assessment and Plan - Diagnosis (1) Chest pain Qualifiers: Chest pain type: intercostal pain Qualified Code(s): R07.82 - Intercostal pain Is this a current diagnosis for this admission?: Yes Plan: Most likely musculoskeletal. And does admit to chronic left-sided chest pain over the mastectomy area. Was more concerned with chest pain associated with shortness of breath which could be due to asthma exacerbation. EKG no acute changes, troponins WNL. Admit to telemetry, trend troponins, antiplatelets, beta-blockers, CRISTY, statins. Nuclear stress test for further risk stratification. (2) Acute asthma exacerbation Qualifiers: Asthma severity: mild Is this a current diagnosis for this admission?: Yes Plan: Supplemental oxygen, duo nebs, IV steroids, LABA's/LAMA's (3) Diabetes Qualifiers: Diabetes mellitus type: type 2 Is this a current diagnosis for this admission?: Yes Plan: Takes glyburide, Januvia and metformin as outpatient. Diabetic diet, sliding scale insulin, Accu-Chek, long-acting insulin, pre-meal insulin, hypoglycemia protocol. Restart home meds on discharge. (4) CAD (coronary artery disease) Is this a current diagnosis for this admission?: Yes Plan: Status post PCI times times here, 1 stent. Continue antiplatelets, statins, CRISTY, beta-blockers, sublingual nitro, PRN morphine, supplemental oxygen. Outpatient PCP follow-up. (5) Hypertension Is this a current diagnosis for this admission?: Yes Plan: Restart home meds, PRN hydralazine, adjust meds as needed, outpatient PCP follow-up. (6) Dyslipidemia Is this a current diagnosis for this admission?: Yes Plan: Restart home meds. (7) History of left breast cancer Is this a current diagnosis for this admission?: Yes Plan: Status post left mastectomy and chemotherapy. Continue anastrozole. Outpatient oncology follow-up. (8) History of TIA (transient ischemic attack) Is this a current diagnosis for this admission?: Yes Plan: History of TIA, currently asymptomatic. Continue antiplatelets, statins, optimize BP.
[2019-04-21] MEDS ORDERED: OXYCODONE-ACETAMINOPHEN 5-325 MG TABLET PO PRN (18:48)
[2019-04-21] MEDS ORDERED: MORPHINE SULFATE 10 MG/ML INJ IV PRN (18:48)
[2019-04-21] MEDS: FLUTICASONE/VILANTEROL 200-25 MCG/DOSE IH SCH (19:36)
[2019-04-21] MEDS: IPRATROPIUM/ALBUTEROL 0.5-2.5 MG/3 ML AMPUL NEB SCH (19:56)
[2019-04-21] MEDS: FAMOTIDINE 20 MG TABLET PO SCH (21:28)
[2019-04-21] MEDS ORDERED: LATANOPROST 0.005% OPH SOLN 2.5 ML OS SCH (22:00)
[2019-04-21] MEDS ORDERED: (PENDING PHARMACY ID) (Budesonide/Formoterol Fumarate 1 PUFF) IH SCH (22:00)
[2019-04-21] MEDS ORDERED: ATORVASTATIN CALCIUM 80 MG TABLET PO SCH (22:00)
[2019-04-22 07:26] LABS: ABSOLUTE BASOPHILS # (AUTO) 0.1 10^3/uL (0.0-0.2); ABSOLUTE EOSINOPHILS # (AUTO) 0.5 10^3/uL (0.0-0.6); ABSOLUTE MONOCYTES (AUTO) 0.7 10^3/uL (0.1-1.4); ABSOLUTE NEUT (AUTO) 3.7 10^3/uL (1.7-8.2); BASOPHILS % (AUTO) 1.1 % (0-2); EOSINOPHILS % (AUTO) 7.1 % (0-6); HEMATOCRIT 38.5 % (36.0-47.0); HEMOGLOBIN 12.9 g/dL (12.0-15.5); LYMPHOCYTES % (AUTO) 28.9 % (13-45); MEAN CORPUSCULAR HEMOGLOBIN 28.6 pg (27.0-33.4); MEAN CORPUSCULAR HGB CONC 33.5 g/dL (32.0-36.0); MEAN CORPUSCULAR VOLUME 85 fl (80-97); PLATELET COUNT 208 10^3/uL (150-450); RED BLOOD COUNT 4.51 10^6/uL (3.72-5.28); RED CELL DISTRIBUTION WIDTH 14.8 % (11.5-14.0); SEGMENTED NEUTROPHILS % (AUTO) 52.9 % (42-78); TOTAL CELLS COUNTED % (AUTO) 100 %; WHITE BLOOD COUNT 6.9 10^3/uL (4.0-10.5)
[2019-04-22 07:45] LABS: ANION GAP 9 (5-19); BLOOD UREA NITROGEN 18 mg/dL (7-20); CALCIUM 9.2 mg/dL (8.4-10.2); CARBON DIOXIDE 28 mmol/L (22-30); CHLORIDE 102 mmol/L (98-107); CHOLESTEROL 112.88 mg/dL (0-200); GLUCOSE 190 mg/dL (75-110); POTASSIUM 4.3 mmol/L (3.6-5.0); SODIUM 138.6 mmol/L (137-145); TRIGLYCERIDES 71 mg/dL (<150)
[2019-04-22] MEDS: IPRATROPIUM/ALBUTEROL 0.5-2.5 MG/3 ML AMPUL NEB SCH ×2 (07:54→13:17)
[2019-04-22 07:55] LABS: DIRECT LDL 44 mg/dL (<100)
[2019-04-22 07:56] LABS: CREATINE KINASE MB 1.81 ng/mL (<4.55)
[2019-04-22 07:58] LABS: TROPONIN I < 0.012 ng/mL
[2019-04-22] MEDS ORDERED: LISINOPRIL 5 MG TABLET PO SCH (08:15)
[2019-04-22] MEDS ORDERED: PROMETHAZINE HCL INJ 25 MG/1 ML VIAL IV PRN (08:30)
[2019-04-22] MEDS ORDERED: ONDANSETRON HCL INJ/PF 4 MG/2 ML SDV IV PRN (08:30)
[2019-04-22] MEDS: ACETAMINOPHEN 325 MG TABLET PO PRN ×2 (08:43→17:41)
[2019-04-22] MEDS: INSULIN LISPRO 100 UNIT/ML 3 ML VIAL SUBCUT SCH ×3 (08:43→17:36)
[2019-04-22] MEDS ORDERED: EZETIMIBE 10 MG TABLET PO SCH (10:00)
[2019-04-22] MEDS ORDERED: ANASTROZOLE 1 MG TABLET PO SCH (10:00)
[2019-04-22] MEDS ORDERED: VALSARTAN 160 MG TABLET PO SCH (10:00)
[2019-04-22] MEDS ORDERED: DOCUSATE SODIUM 100 MG/10 ML UDC PO SCH (10:00)
[2019-04-22] MEDS ORDERED: DOCUSATE SODIUM 100 MG CAPSULE PO SCH (10:00)
[2019-04-22] MEDS ORDERED: ENOXAPARIN SODIUM INJ 40 MG/0.4 ML DISP.SYRIN SUBCUT SCH (10:00)
[2019-04-22] MEDS: FAMOTIDINE 20 MG TABLET PO SCH (11:40)
[2019-04-22] MEDS: FLUTICASONE/VILANTEROL 200-25 MCG/DOSE IH SCH (12:58)
[2019-04-22] MEDS ORDERED: REGADENOSON INJ 0.4 MG/5 ML DISP.SYRIN IV ONE (15:32)
[2019-04-22] MEDS ORDERED: HYDRALAZINE HCL INJ/PF 20 MG/1 ML SDV IV ONE (17:00)
[2019-04-22 19:43] VITALS: BP 147/56
--- NOTE | 2019-04-27 09:01 | PDOC DISCHARGE SUMMARY ---
General - Admit/Disc Date/PCP Admission Date/Primary Care Provider: 04/21/19 12:39 Discharge Date: 04/22/19 - Discharge Diagnosis (1) Chest pain Is this a current diagnosis for this admission?: Yes (2) Acute asthma exacerbation Is this a current diagnosis for this admission?: Yes (3) Diabetes Is this a current diagnosis for this admission?: Yes (4) CAD (coronary artery disease) Is this a current diagnosis for this admission?: Yes (5) Hypertension Is this a current diagnosis for this admission?: Yes (6) Dyslipidemia Is this a current diagnosis for this admission?: Yes (7) History of left breast cancer Is this a current diagnosis for this admission?: Yes (8) History of TIA (transient ischemic attack) Is this a current diagnosis for this admission?: Yes - Additional Information Resuscitation Status: Full Code Discharge Diet: Regular Discharge Activity: Activity As Tolerated Prescriptions: Atorvastatin Calcium [Lipitor 80 mg Tablet] 80 mg PO QHS 30 Days #30 tablet Home Medications: Albuterol Sulfate [Proair HFA Inhalation Aerosol 8.5 gm MDI] 1 puff IH Q6HP PRN 04/21/19 Albuterol Sulfate [Ventolin 0.083% Neb 2.5 mg/3 mL Ampul] 1 vial NEB RTQ6HP PRN 04/21/19 Anastrozole [Arimidex 1 mg Tablet] 1 mg PO DAILY 04/21/19 Aspirin [Ecotrin] 81 mg PO DAILY 04/21/19 Budesonide/Formoterol Fumarate [Symbicort HFA 160-4.5 mcg Inhaler 6 gm] 1 puff IH Q12 04/21/19 Chlorpheniramine Maleate [Chlor-Trimeton 4 mg Tablet] 1 tab PO TIDP PRN 04/21/19 Esomeprazole Mag Trihydrate [Nexium] 40 mg PO Q6AM 04/21/19 Ezetimibe [Zetia 10 mg Tablet] 10 mg PO DAILY 04/21/19 Glipizide [Glucotrol 10 mg Tablet] 10 mg PO BID 04/21/19 Latanoprost [Xalatan 0.005% Oph Soln 2.5 ml] 1 drop OS QHS 04/21/19 Metformin HCl [Glucophage XR 500 mg Tablet] 500 mg PO BIDBS 04/21/19 Montelukast Sodium [Singulair 10 mg Tablet] 10 mg PO QHS 04/21/19 Nifedipine [Nifedipine ER] 60 mg PO Q12 04/21/19 Sitagliptin Phosphate [Januvia] 100 mg PO DAILY 04/21/19 Valsartan [Diovan 160 mg Tablet] 160 mg PO DAILY 04/21/19 Atorvastatin Calcium [Lipitor 80 mg Tablet] 80 mg PO QHS 30 Days #30 tablet 04/22/19 History of Present Illness History of Present Illness: NAKUL VAZQUEZ is a 78 year old female past medical history of CAD status post 1 stent x10 years, diabetes, hypertension, dyslipidemia, TIA, (cancer status post mastectomy and chemotherapy, asthma tenting to ED complaining of chest pain. Chest pain started yesterday evening, she woke up with left-sided chest pain, stabbing in quality, worse with movement and coughing, constant, radiating to her back associated with shortness of breath. Denies any fever, chills, nausea, vomiting, diarrhea, constipation or any urinary symptoms. ED CTA was negative for any PE or pneumonia, troponins on admission WNL, EKG no acute changes. Due to patient's history of CAD hospital was consulted for admission. On physical examination patient has tenderness to the left chest especially over postsurgical area of the left mastectomy. Hospital Course Hospital Course: (1) Chest pain Most likely musculoskeletal. She does does admit to chronic left-sided chest pain over the mastectomy area. Was more concerned with chest pain associated with shortness of breath which could be due to asthma exacerbation. EKG no acute changes, troponins WNL. Was admitted to trended troponins, satarted on antiplatelets, beta-blockers, CRISTY, statins. Nuclear stress test negative. All cardiac work up negative. Patient and family updated about findings and discharged to restart home meds and follow up with pcp. (2) Acute asthma exacerbation Improved. SpO2 WNL on RA. Started Supplemental oxygen, duo nebs, IV steroids, LABA's/LAMA's Was asked to follow up with PCP. (3) Diabetes Takes glyburide, Januvia and metformin as outpatient. Diabetic diet, sliding scale insulin, Accu-Chek, long-acting insulin, pre-meal insulin, hypoglycemia protocol. Restart home meds on discharge. Was asked to restart home upon discharge. (4) CAD (coronary artery disease) Status post PCI times times here, 1 stent. Continued antiplatelets, statins, CRISTY, beta-blockers, sublingual nitro, PRN morphine, supplemental oxygen. Outpatient PCP follow-up. (5) Hypertension Restarted home meds, PRN hydralazine, adjust meds as needed, outpatient PCP follow-up. (6) Dyslipidemia Restarted home meds. (7) History of left breast cancer Status post left mastectomy and chemotherapy. Continued anastrozole. Outpatient oncology follow-up. (8) History of TIA (transient ischemic attack) History of TIA, currently asymptomatic. Continued antiplatelets, statins, optimize BP. Physical Exam Vital Signs: Temp Pulse Resp BP Pulse Ox 97.9 F 90 15 147/56 H 99 04/22/19 19:43 04/22/19 19:43 04/22/19 19:43 04/22/19 19:43 04/22/19 19:43 General appearance: PRESENT: no acute distress, well-developed, well-nourished Head exam: PRESENT: atraumatic, normocephalic Respiratory exam: PRESENT: clear to auscultation hayden. ABSENT: rales, rhonchi, wheezes Cardiovascular exam: PRESENT: RRR, other - TTP Left pectoral region. ABSENT: diastolic murmur, rubs, systolic murmur Neurological exam: PRESENT: alert, awake, oriented to person, oriented to place, oriented to time, oriented to situation, CN II-XII grossly intact. ABSENT: motor sensory deficit Results Laboratory Results: 04/22/19 07:00 04/22/19 07:00 04/21/19 04/21/19 04/22/19 09:43 15:00 07:00 Creatine Kinase 91 CK-MB (CK-2) Troponin I < 0.012 < 0.012 04/22/19 07:00 Creatine Kinase CK-MB (CK-2) 1.81 Troponin I < 0.012 Impressions: Chest X-Ray 04/21/19 09:47 IMPRESSION: NO ACUTE RADIOGRAPHIC FINDING IN THE CHEST. Chest/Abdomen CTA 04/21/19 10:38 IMPRESSION: 1. Negative examination for pulmonary embolism. 2. Pulmonary hyperinflation without acute abnormality of the lungs. 3. Coronary artery disease. Qualifiers - * PATIENT BEING DISCHARGED WITH ANY OF THE FOLLOWING DIAGNOSIS: No Acute Heart Failure - Is this a Heart Failure Patient?: No
--- NOTE | 2019-04-27 21:36 | DRAGON STRESS TEST REPORT ---
Intravenous Lexiscan Cardiolite stress test using single photon emmision computerized tomography. Date of procedure: 04/22/2019. Ordering Provider: Dr. Juan. Patient's status: In Patient. Indication: Chest pain. Coronary risk factors: Age, hypertension, and diabetes mellitus. Resting EKG: Sinus Rhythm. Poor R wave progression leads V5 to V6. Nonspecific T changes lateral leads. Stress EKG: No changes of ischemia. The patient had no chest pain or discomfort, and there were no arrhythmias seen. Reason for termination: Protocol. Conclusions: Normal EKG and hemodynamic response to IV Lexiscan. Nuclear data: At rest the patient was given 10.14 millicuries of technetium 99m sestamibi injected intravenously. As per protocol rest non gated SPECT images were obtained. Subsequently the patient was given intravenous Lexiscan at a dose of 0.4 mg in 5 mL intravenously, followed by flush with normal saline. Subsequently the stress dose of 33.0 millicuries of technetium 99m sestamibi was injected intravenously. As per protocol stress gated images were obtained. Nuclear interpretation: Review of images showed that all segments of the myocardium had normal perfusion at rest, and normal perfusion post stress with IV Lexiscan. All segments of the myocardium had normal motion, contraction, and thickening by gated study. T. I D. ratio was borderline abnormal at 1.22. Visually this is not reliable, and the T I D ratio is normal. There is no transient ischemic dilatation of the left ventricle. Computer read rest, and stress left ventricular ejection fraction were 58 %, and 51 %, respectively. Visually both the stress and rest ejection fractions were normal, and greater than 55%. Conclusion: 1. There is no scintigraphic evidence of Lexiscan induced myocardial ischemia. 2. There is no scintigraphic evidence of myocardial infarction/scar. Recommendations: Aggressive risk factor modification, and treating the underlying co- morbidities. MTDD
== END 2019-04-22 20:05 | disposition home or self-care (01) ==
LOC: ER 09:18 → EH 12:39 → 4S 16:13
PROVIDERS: ADMIT Internal Medicine; ATTEND Internal Medicine
DX: R07.82 Intercostal pain (principal); E11.9 Type 2 diabetes mellitus without complications; I25.10 Atherosclerotic heart disease of native coronary artery without angina pectoris; I10 Essential (primary) hypertension; E78.5 Hyperlipidemia, unspecified; G89.29 Other chronic pain; J44.9 Chronic obstructive pulmonary disease, unspecified; M19.90 Unspecified osteoarthritis, unspecified site; J45.901 Unspecified asthma with (acute) exacerbation; R05 Cough; R06.02 Shortness of breath; Z85.3 Personal history of malignant neoplasm of breast; Z86.73 Personal history of transient ischemic attack (TIA), and cerebral infarction without residual deficits; Z79.84 Long term (current) use of oral hypoglycemic drugs; Z79.82 Long term (current) use of aspirin; Z95.5 Presence of coronary angioplasty implant and graft; Z90.10 Acquired absence of unspecified breast and nipple
CPT/HCPCS: 93005; 99285; 96374; 36415 ×2; 82553; 82962 ×2; 82550; 85025 ×2; 80048; 80053; 84484 ×2; 80061; 93017; 71045; 78452; 71275; 93010; 94640 ×2; A9500; J2785; A9270 ×16; J0360; J2270; J1650; J3490 ×2; Q9969; G0378; J1815; J7620